=== PATIENT | male | born 1975 | race Caucasian/White ===

== ENCOUNTER 2018-02-11 16:39 | Emergency (ER) | payer OTHER, SELFPAY ==
[2018-02-11] MEDS ORDERED: Cephalexin 500 MG CAP ONE (17:47)
[2018-02-11] MEDS ORDERED: Naproxen 500 MG TAB ONE (17:47)
== END 2018-02-11 18:00 ==
LOC: MADERS 16:39
DX: S61.210A Laceration without foreign body of right index finger without damage to nail, initial encounter (principal); W26.0XXA Contact with knife, initial encounter
CPT/HCPCS: 99283